=== PATIENT | male | born 1965 | race Caucasian/White ===

== ENCOUNTER → 2018-01-27 | Outpatient (CLI) | payer OTHER ==
[2018-01-26 10:41] VITALS: BMI 24.4
[2018-01-27 13:47] VITALS: BP 127/75; PULSE 97; RESP 20
--- NOTE | 2018-01-27 21:21 | P.CONS ---
History of Present Illness - Reason for Consult Consult date: 01/27/18 - History of Present Illness This is 52 years on male with a chronic history of severe low back pain, started several years ago he denies any initiating event, he reported that the intensity of the pain increased over time, and currently the pain interfering with his quality of life, the pain is very intense and grinding aching pain localized in the low back area and increased with any activity, he denies any motor or sensory deficits he denies any change in bowel movement or urination, and is currently on pain medication [place] 7.5/325 which is helping only minimally, he denies any side effect of the medication, Past Medical History Past Medical History: Seizure Disorder Additional Past Medical History / Comment(s): LAST SEIZURE 1 YEAR AGO, BACK AND LEFT HIP PAIN. History of Any Multi-Drug Resistant Organisms: None Reported Past Surgical History: No Surgical Hx Reported Additional Past Anesthesia/Blood Transfusion Reaction / Comm: NO ANESTHESIA HX. Smoking Status: Current every day smoker - Past Family History Father Family Medical History: Cancer Mother Family Medical History: Cancer Medications and Allergies Home Medications Medication Instructions Recorded Confirmed Type HYDROcodone/APAP 7.5-325MG [[place] 1 tab PO TID PRN 01/26/18 01/27/18 History 7.5-325] levETIRAcetam [levETIRAcetam ER] 2 tab PO HS 01/27/18 01/27/18 History Allergies Allergy/AdvReac Type Severity Reaction Status Date / Time No Known Allergies Allergy Verified 01/26/18 10:26 Physical Exam Vitals: Vital Signs Pulse Resp BP Pulse Ox 01/27/18 13:38 97 20 127/75 96 Social history : smoker ,Occasional ETOH , NO Illegal drugs use Review of Systems : 1- Constitutional : no chills , no fever , no night sweats , 2- Ears : no ear discharge , no change in hearing 3-Nose, Mouth ,Throat ; no bleeding gums, no sore throat , no epistaxis , 4-Cardiovascular : Denies chest pain, , no orthopnea , no palpitation 5-Respiratory : Denies cough , no dyspnea , no hemoptysis 6-Gastrointestinal :, no change in bowel habits , no coffee- ground emesis . 7-Genitourinary : No hematuria , no discharge , no incontinence, 8-Musculoskeletal : gait dysfunction , report low back pain , 9- Neurological : no ataxia , no tremor , no sezure , 10-Psychatric , no suicidal ideation no hallucination 11- Endocrine : no cold intolerence , no polyuria , no polydypsia , 12-Hematologic : no easy bleeding , no easy brusing , 13-Allergic / immunology : no angioedema , no wheezing ,no allergic rhinitis 14-Integumentary : no brttle nails , no change hair / nails , no foot/leg ulcers . Physical Examinations : 1-Constitutional : Cooperative , not in acute distress . 2-HEENT : nech ; supple , no Lymphadenopathy , no Thyromegaly , :eyes , no icterus, no photophobia . ENT : , normal oropharynx , no Thrush 3- Respiratory : Chest clear to auscultations Bilaterally , no wheezing . 4- Cardiovascular : regular rate and rhythem , S1 , S2 , no S3 , no S4. 5- Gastrointestinal: abdomen soft no tenderness , no organomegally . 6- Genitourinary : Defferred . 7-Integumentary : No cellulitis , no ulcers , normal skin turgor , no cyanotic . 8- neurologic : Cranial nerve II to XII intact , no focal neurological deffecit 9-psychatric : alert , oriented X 3 , appropriate affect , intact judgment and insight . 10-Lymphatic : no Lymphadenopathy. 11- musculoskeltal: abnormal gait Abduction on and adduction of the right shoulder and lateral movement of the right shoulder associated with severe pain. Lumber spine moter stegnth lower extremities ,thigh and legs 5/5 Right side , 5/5 Left side deep tendon reflexes : normal Knee Jerk , normal ankle Jerk positive lumber facet Loading Test ( L>R ) Range of motion of the lumbar spine Flexion 30 degrees, extension 10 degrees strait leg raising test negative bilaterally Fabere test negative bilaterally Results Comments: MRI of the lumbar spine showed L 45 disc protrusion with central canal stenosis , and L5-S1 facet arthropathy Assessment and Plan Plan: Assessment and plan= chronic and severe low back pain secondary to lumbar spondylosis with facet arthropathy without myelopathy, and lumbar spinal stenosis Patient will be good candidate to have diagnostic medial branch block lumbar area at L3 4, L4 5/L5-S1, fits positive and he will be good candidate for radiofrequency ablation of the medial branch lumbar area. Right shoulder arthralgia, secondary to right rotator cuff tear versus osteoarthritis of the right shoulder, patient could be good candidate to have right shoulder steroid injection, and also I offered the patient the option of referring him to orthopedic surgeon for evaluation regarding his shoulder., He refuses to have any surgical interventions at this point, in the future we can consider doing a right shoulder steroid injection Time with Patient: Greater than 30
== END | disposition home or self-care (01) ==
LOC: PNWHC3 13:22
PROVIDERS: ATTEND Specialist
DX: M48.061 Spinal stenosis, lumbar region without neurogenic claudication (principal); M47.816 Spondylosis without myelopathy or radiculopathy, lumbar region; M46.96 Unspecified inflammatory spondylopathy, lumbar region; F17.200 Nicotine dependence, unspecified, uncomplicated; Z79.891 Long term (current) use of opiate analgesic; Z79.899 Other long term (current) drug therapy
CPT/HCPCS: 99201

== ENCOUNTER 2018-02-26 07:54 | Day surgery (SDC) | payer OTHER ==
[2018-02-25 11:56] VITALS: BMI 25.0
[2018-02-26 08:25] VITALS: RESP 18; TEMP 98
[2018-02-26] MEDS ORDERED: LACTATED RINGERS 1,000 ML IV ONE (08:34)
[2018-02-26] MEDS ORDERED: LIDOCAINE 1% 20 ML VIAL (10MG/ML) FOR IV START INTRADERMA ONE (08:35)
--- NOTE | 2018-02-26 09:00 | P.PCN ---
Date of Procedure: 02/26/18 Surgeon: Antolin Hayden Description of Procedure: PREOPERATIVE DIAGNOSIS : 1- Lumbar spondylosis with Facet Arthropathy without myelopathy . 2- Lumber degenerative disc disease POSTOPERATIVE DIAGNOSIS: 1- Lumbar spondylosis with Facet Arthropathy without myelopathy . 2- Lumber degenerative disc disease PROCEDURE: Diagnostic bilateral L3 -4 , L4 -5 , and L5-S1 medial branch block under fluoroscopy ANESTHESIA: Local anesthetic , monitored intravenous sedation EBL: Minimal COMPLICATION: None. IV FLUIDS: none PROCEDURE INDICATION: Chronic low back pain secondary to Facet arthropathy unresponsive to conservative treatment. PROCEDURE DESCRIPTION: The patient was seen and identified in the preop holding area , risks and benefits and possible complications of the procedure and alternative were discussed with the patient, and the patient agreed to proceed with the procedure and signed the consent. An IV in the preoperative area was started and vital signs monitored during the procedure and fluoroscopy was used to maximize the benefit and accuracy of the needle placement, and sedation was given to decrease patient anxiety, patient was taken to the procedure room and placed in prone position vital signs monitored in the back prepped. Intervenous sedation was administered under hospital guidelines. Under strict sterile technique using a right oblique fluoroscopy , the junction of the transverse process and the superior articulating process of the right L3- 4 , L4- 5, and L5-S1 vertebra which corresponding to the fluoroscopy image of the eye of the Xavier dog on the block side for the medial branches and subsequently , after local infiltration at each level ,then one 25-gauge Quincke-type needles was placed at the junction of the base of the transverse process and the superior articular process at the appropriate level, and the needle was advanced until the periosteum contacted, needle placement confirmed with AP oblique and lateral view and after appropriate needle placement confirmed, and after negative aspiration, 0.5 mL of Marcaine 0.25% mixed with 40 mg depomedrol in divided doses was injected at each level and the needle subsequently removed and the same procedure repeated for the left side at left side at L3-4, L4- 5 and L5-S1 levels. At the end of the procedure and the needles removed and a bandage applied after the skin was cleaned the cleaning solution patient taken to recovery room in stable condition and monitors in the recovery room for 20-30 minutes and discharged home in stable condition after discharge criteria met and patient will follow up with the pain clinic in 2-4 weeks. Given that he has had one of these procedures at a previous facility which gave him nearly 100% relief his pain for 3 days, if he received good benefit from this procedure but it is short -lived, I think you make an excellent candidate for bilateral lumbar radiofrequency ablation..
[2018-02-26] MEDS ORDERED: IV FLUID CONTINUATION 1,000 ML IV ONE (09:20)
--- NOTE | 2018-02-26 09:20 | FL ---
EXAMINATION TYPE: FL guided pain mgmt statistic DATE OF EXAM: 02/26/2018 HISTORY: Flouroscopy time 3 seconds of fluoroscopy provided. IMPRESSION: 1. Fluoroscopy time.
[2018-02-26 09:36] VITALS: BP 151/86; PULSE 69
--- NOTE | 2018-03-01 08:56 | CDI ---
Date: 03/01/18 CDS/Store Deli Manager Name: Emma Andrade Phone: If any questions, call Namrata Ferrer Heavy Equipment Supervisor at [phone] Patient Name: Elroy Aguila Admit Date: 02/26/18 Discharge Date: 02/26/18 ATTENTION: The [facility] Coding Staff appreciate your assistance in clarifying documentation. Please respond to the clarification below the line at the bottom and electronically sign. The [facility] Coding staff will review the response and follow-up if needed. Please note: Queries are made part of the Legal Health Record. If you have any questions, please contact the Heavy Equipment Supervisor. Dear Dr. Hayden, Please provide clarification on the type of sedation provided. Please clarify whether the sedation was moderate/conscious or unconscious sedation. Operative report documents IV sedation given per hospital guidelines. On the Pain Procedure Record under Anesthesia Plan, nothing is checked. Thank you for your kind consideration. _ intravenous sedation would have been used. Please check the record to see if there is any midazolam recorded as given. If there is, then this would be considered moderate sedation. If not, I will have to amended notes to remove the sedative part. MTDD
== END 2018-02-26 09:51 | disposition home or self-care (01) ==
LOC: ORPAIN 07:54
PROVIDERS: ATTEND Pain Medicine Pain Medicine
DX: G89.29 Other chronic pain (principal); M47.816 Spondylosis without myelopathy or radiculopathy, lumbar region; M51.36 Other intervertebral disc degeneration, lumbar region
CPT/HCPCS: 64493; 64494; 64495; J2250; J1030; 99152

== ENCOUNTER 2018-04-02 09:33 | Day surgery (SDC) | payer OTHER ==
[2018-03-27 16:32] VITALS: BMI 25.0
[2018-04-02] MEDS ORDERED: LACTATED RINGERS 1,000 ML IV SCH (09:45)
[2018-04-02 10:07] VITALS: RESP 16; TEMP 98.3
[2018-04-02] MEDS ORDERED: IV FLUID CONTINUATION 1,000 ML IV ONE ×2 (10:49)
--- NOTE | 2018-04-02 10:50 | FL ---
EXAMINATION TYPE: FL guided pain mgmt statistic DATE OF EXAM: 04/02/2018 HISTORY: Pain 7 sec fl time, Dr. Mai, Lumbar.
--- NOTE | 2018-04-02 11:09 | P.PCN ---
Date of Procedure: 04/02/18 Surgeon: Jamie Mai Pathology: none sent Condition: stable Disposition: PACU Description of Procedure: PREOPERATIVE DIAGNOSIS: Lumbar spondylosis without myelopathy and facet arthropathy. POSTOPERATIVE DIAGNOSIS: Lumbar spondylosis without myelopathy and facet arthropathy. PROCEDURE DESCRIPTION: Patient presents for L3-L4, L4-L5 and L5-S1 diagnostic medial branch blocks under fluoroscopic guidance. The procedure is performed using fluoroscopic guidance during needle placement to assure proper position and maximize safety. ANESTHESIA: Local with 1% lidocaine; conscious sedation EBL: Minimal PROCEDURE INDICATION: Patient with lumbar facet arthropathy signs and symptoms, here for diagnostic medial branch block #2 after two days' relief from first procedure. Pt does not take any blood thinning medications. PROCEDURE DESCRIPTION: The patient was seen and identified in the preoperative area. Risks, benefits, complications, and alternatives were discussed with the patient (including but not limited to incomplete pain relief, bleeding, infection, nerve damage, and allergies to medications), the patient agreed to proceed with the procedure and signed the consent after all questions were answered. Patient was taken to the OR and time out was completed to verify proper patient, position, laterality of pain, and allergies. Pt was placed in the prone position and a pillow was placed under the abdomen to reduce lumbar lordosis. The lumbosacral area was prepped and draped in the usual sterile fashion. Using oblique fluoroscopy, the eye of the "Xavier dog" of right L4 vertebral body, which corresponds to the path of the medial branch originating from the level above, which is L3 in this case, was identified. Subsequently, a 22-gauge 3.5-inch spinal needle was inserted under fluoroscopic guidance toward the eye of the "Xavier dog" of the right L4 vertebral body, corresponding to the junction of the superior articular process and the transverse process of the pedicle of the same level. After needle tip confirmation on lateral view and after negative aspiration for CSF and blood and without paresthesias, 1 mL of a 6 ml solution of 0.5% preservative-free bupivacaine and 40 mg Kenalog was injected. Subsequently the needle was withdrawn intact and the same procedure was repeated for the right L4, right L5, left L3, left L4, and left L5 medial branches which together with right L3 medial branch correspond to the sensory innervation of the bilateral L3-L4, L4-L5, and L5-S1 facet joints. Needle was withdrawn intact after each injection. At the end of the procedure, the skin was cleansed and bandages were applied. COMPLICATIONS: None. DISPOSITION/PLAN: The patient taken to the recovery area after the procedure in a stable condition for observation. Patient was reexamined prior to discharge and there were no issues. Patient was discharged home, accompanied by an adult, after meeting discharged criteria. Discharge instructions were give to the patient by the staff. Patient was specifically instructed not to drive today and to rest for the rest of the day. Patient will follow up in clinic for further evaluation.
[2018-04-02 11:14] VITALS: BP 154/86; PULSE 77
== END 2018-04-02 11:27 | disposition home or self-care (01) ==
LOC: ORPAIN 09:33
PROVIDERS: ATTEND Anesthesiology
DX: M47.816 Spondylosis without myelopathy or radiculopathy, lumbar region (principal); I10 Essential (primary) hypertension; E78.5 Hyperlipidemia, unspecified
CPT/HCPCS: 64493; 64494; 64495; J2250; J3301; J3010

== ENCOUNTER → 2018-04-20 | Outpatient (CLI) | payer OTHER ==
[2018-04-20 12:24] VITALS: BP 163/85; PULSE 80; RESP 16
--- NOTE | 2018-04-20 12:43 | P.PAINPG ---
Subjective Progress Note Date: 04/20/18 Principal diagnosis: Intractable low back pain This is a pleasant 52-year-old gentleman who is undergone 2 previous diagnostic medial branch nerve blocks to help his intractable low back pain. Unfortunately , he reports that neither one of these has afforded him any sort of benefit. He continues to complain of low pain in his back he also complains of pain in his right hip and also of a numbness and vibratory feeling in his right anterior and lateral thigh. He denies any weakness in his legs. He denies bowel or bladder dysfunction. Objective - Vital Signs Vital signs: Vital Signs Temp Pulse 80 04/20/18 12:14 Resp 16 04/20/18 12:14 BP 163/85 04/20/18 12:14 Pulse Ox Intake & Output 04/19/18 04/20/18 04/20/18 18:59 06:59 18:59 Weight 70.307 kg - Exam General: The patient is alert and oriented. Patient is not sedateded Patient answers all question appropriately. Cardiac: Heart is regular in rate and rhythm Respiratory: Clear to auscultation. No audible wheezes. Abdomen: Soft nontender nondistended. Lower extremities: Strength is normal bilaterally. Sensation is normal bilaterally. Reflexes are preserved and symmetric bilaterally. Straight leg raise is negative bilaterally. He is not tender to palpation over his bursa bilaterally on his hips. Internal and external rotational movements of his hip are not provocative of his pain pattern. Assessment and Plan (1) Spondylosis of lumbar region without myelopathy or radiculopathy Narrative/Plan: Plan of Care 1. Medications: Patient does not receive any medications from our clinic. 2. Interventions: Patient is undergone 2 previous diagnostic medial branch nerve blocks. These have not afforded him relief. Based on his MRI which demonstrates a significant disc bulge and neural foraminal stenosis at L4 5, I would recommend he undergo a lumbar epidural steroid injection at the L4 5 interspace. If this is beneficial to him we could repeat this 2-4 weeks after the procedure. 3. Referrals: For geographic reasons, the patient is requesting to be transferred to our [place] office. We will help expedite this process. 4. Testing: No testing was ordered. 5. Psychological: Patient denies significant anxiety or depression. I will not refer him to a psychologist today. Current Visit: Yes Status: Acute Code(s): M47.816 - SPONDYLOSIS W/O MYELOPATHY OR RADICULOPATHY, LUMBAR REGION SNOMED Code(s): 65244444 (2) Spinal stenosis, lumbar Current Visit: Yes Status: Acute Code(s): M48.061 - SPINAL STENOSIS, LUMBAR REGION WITHOUT NEUROGENIC THERESA SNOMED Code(s): 12684418 PQRS Measure Charge Sheet Measure #130: Documentation of Current Meds in Medical Chart: Patient's medications documented in chart Measure #226: Tobacco Use: Screen & Cessation Intervention: Pt screened for tobacco use AND intervention given Measure #111: Pneumonia Vaccination: Pneumococcal vaccine NOT administered or previously given Measure #47: Advance Care Plan: Advance care planning discussed & documented, pt chose/unable to give Measure #412: Opioid Treatment Agreement: No documentation of signed opioid treatment agreement Measure #408: Opioid Therapy Follow-up Evaluation: Patient had NO f/u eval minimum every 3 months during opioid therapy Measure #317: Preventitive Care & Scrn High Bld Press & F/U: Pre-hypertensive or hypertensive BP documented, pt will f/u with PCP Measure #128: Body Mass Index (BMI) Screening & Follow-up: BMI documented ABOVE normal parameters - f/u documented Measure #131: Pain Assessment & Follow-up: Pain positive & plan documented Measure #431: Unhealthy Alcohol Use Preventative Care & Scrn: Patient not identified as an unhealthy alcohol user PQRS Narrative: Smoking Status Current every day smoker Do You Want the Pneumonia No Vaccine AT THIS TIME? Blood Pressure 163/85 Pain Intensity [Lower 8 Posterior Medial Back] Scale Used Numeric (1 - 10) Hx Alcohol Use (MH) Yes Home Medications: Ambulatory Orders HYDROcodone/APAP 7.5-325MG [[place] 7.5-325] 1 tab PO TID PRN 01/26/18 levETIRAcetam [levETIRAcetam ER] 2 tab PO HS 01/27/18 Controlled Substance Measures - Controlled Substance Measures Is patient prescribed a controlled substance at discharge?: No
== END | disposition home or self-care (01) ==
LOC: PNWHC3 11:49
PROVIDERS: ATTEND Pain Medicine Pain Medicine
DX: M54.5 Low back pain (principal); M48.061 Spinal stenosis, lumbar region without neurogenic claudication; M47.816 Spondylosis without myelopathy or radiculopathy, lumbar region; F17.200 Nicotine dependence, unspecified, uncomplicated; Z79.891 Long term (current) use of opiate analgesic; Z79.899 Other long term (current) drug therapy
CPT/HCPCS: 99211